=== PATIENT | male | born 1985 | race Caucasian/White ===

== ENCOUNTER → 2016-07-01 | Outpatient (CLI) | payer OTHER ==
[~2016-07-01] MED LIST: ASCO10003 PO; B-CO1CAP17 PO; CHOL20007 PO; DIPH30CA2 PO; FLAX1CAP11 PO; HYDR2.5C37 TOP; OMEG10007 PO; OXYC-57 PO; POTA99TA PO; VITA400C3 PO
== END | disposition home or self-care (01) ==
LOC: C.LAB 20:38
DX: Z02.83 Encounter for blood-alcohol and blood-drug test (principal)

== ENCOUNTER 2016-07-06 19:09 | Emergency (ER) | payer OTHER ==
[~2016-07-06] VITALS: Ht 180.3 cm; Wt 114.8 kg
[~2016-07-06 19:09] MED LIST changes: -ASCO10003 PO; -B-CO1CAP17 PO; -CHOL20007 PO; -DIPH30CA2 PO; -FLAX1CAP11 PO; -OMEG10007 PO; -POTA99TA PO; -VITA400C3 PO
[2016-07-06 19:11] VITALS: TEMP 36.8; Ht 180.3 cm; Wt 114.8 kg
[2016-07-06] MEDS ORDERED: OMEG10007 PO (19:32)
[2016-07-06] MEDS ORDERED: ASCO10003 PO (19:32)
[2016-07-06] MEDS ORDERED: B-CO1CAP17 PO (19:32)
[2016-07-06] MEDS ORDERED: FLAX1CAP11 PO (19:32)
[2016-07-06] MEDS ORDERED: VITA400C3 PO (19:32)
[2016-07-06] MEDS ORDERED: CHOL20007 PO (19:32)
[2016-07-06] MEDS ORDERED: POTA99TA PO (19:32)
[2016-07-06] MEDS ORDERED: CEFTRIAXONE SOD 350MG/ML 1 GM VIAL IM STA (20:04)
[2016-07-06] MEDS ORDERED: AZITHROMYCIN 250 MG TAB PO STA (20:04)
--- NOTE | 2016-07-06 20:47 | EMERGENCY ROOM VISIT NOTE ---
History First contact with patient: 19:16 Chief Complaint: THROAT PAIN/INJURY Stated Complaint: SORE THROAT History of Present Illness The patient is a 31 year old male who presents to the Emergency Room via private vehicle with complaints of "sore throat". The patient states that roughly 2 weeks ago he performed oral sex on a female and shortly after developed a sore throat. He is concerned that this may be a sexually transmitted disease and is requesting a full STD workup. He states the girl does not have any symptoms. He states that he stays hydrated there is no throat pain but if he becomes dehydrated or bruits through his mouth for a long period of time he develops a 5/10 pain in the throat. He denies any fevers, chills, trouble breathing, drooling, genital complaints, penile pain, penile discharge. He said he initially did have abdominal pain of which has now subsided. He states that he is concerned he may have an STD in his throat. Review of Systems A complete 6-point Review of Systems was discussed with the patient, with pertinent positives and negatives listed in the History of Present Illness. All remaining Review of Systems questions can be considered negative unless otherwise specified. Past Medical/Surgical History Medical Problems: (1) No known health problems (2) No known history of drug allergy Family History No pertinent family history Social History Smoking Status: Current Every Day Smoker Housing Status: lives with family Occupation Status: employed Current/Historical Medications Scheduled Ascorbic Acid (Vitamin C), 2,000 MG PO DAILY Cholecalciferol (Vitamin D3), 1 TAB PO DAILY Fish Oil (Lavina-3), 1 CAP PO DAILY Flaxseed (Linseed) (Flax Seed Oil), 2,000 MG PO DAILY Potassium (Potassium), 99 MG PO DAILY Vitamin B Cmplx/Vitc/Folic Ac (Nephrocaps), 1 CAP PO DAILY Vitamin E (Vitamin E 400 Iu), 400 INTER.UNIT PO DAILY Allergies Coded Allergies: No Known Allergies (Unverified , 05/27/16) Physical Exam Vital Signs Date Time Temp Pulse Resp B/P Pulse Ox O2 Delivery O2 Flow Rate FiO2 07/06/16 21:03 80 16 154/74 98 07/06/16 19:11 36.8 76 16 173/71 97 Room Air Physical Exam VITAL SIGNS - Vital signs and nursing notes were reviewed. Patient is hypertensive and he was instructed upon follow-up for this. GENERAL -31-year-old male appearing his stated age who is in no acute distress. Communicates well with provider and answers questions appropriately. SKIN - Without rashes. No petechial rashes. HEAD - NC/AT. EYES - Sclera anicteric. Palpebral conjunctiva pink and moist with no injection noted. EARS - No deformities of external structures noted on gross examination bilaterally. NOSE - Midline and without cyanosis. No epistaxis or purulent drainage noted. MOUTH/OROPHARYNX - Without perioral cyanosis. Buccal mucosa pink and moist and without leukoplakia. Tongue midline with equal elevation of palate bilaterally. Slight tonsillar enlargement bilaterally at 2+. No exudate. Minimal erythema. No vesicular lesions or drainage. NECK - Neck with FROM. Supple to palpation. No lymphadenopathy noted. No nuchal rigidity. No tenderness to palpation. No Kanu angina signs. LUNGS - Chest wall symmetric without accessory muscle use, intercostals retractions, or central cyanosis. Normal vesicular breath sounds CTA B/L. No wheezes, rales, or rhonchi appreciated. CARDIAC - RRR with S1/S2. No murmur, rubs, or gallops appreciated. Medical Decision & Procedures Medications Administered Medications (Trade) Dose Ordered Sig/Gonzalo Route Start Time Stop Time Status Last Admin Dose Admin Ceftriaxone Sodium (Rocephin Im) 250 mg NOW STAT IM 07/06/16 20:04 07/06/16 20:05 DC 07/06/16 20:04 250 MG Azithromycin (Zithromax Tab) 1,000 mg NOW STAT PO 07/06/16 20:04 07/06/16 20:05 DC 07/06/16 20:04 1,000 MG Medical Decision Patient was seen and evaluated as above. He did request a full workup for STDs however after thorough discussion it was decided that he would obtain the blood work portion of the testing at another facility that could provide easier follow -up. For here he did get a rapid strep which was negative. I also ordered gonorrhea and chlamydia culture of the throat which was sent to lab. He also wanted treatment for gonorrhea and chlamydia after discussion, therefore 250 mg of Rocephin was given IM and 1 g of azithromycin was given by mouth. He tolerated this well. He was provided with phone numbers to follow up regarding the blood work testing for HIV and such and indicated that he would go to an urgent care to have this done, but in the event that this is not work out the 3 phone numbers were for the local STD testing facilities most of which are free. At this time I suspect the patient likely has a viral pharyngitis with mild tonsillitis and do not suspect bacterial causes. He was instructed upon management. He was educated upon worrisome symptoms which to return. He was told to follow up regarding his high blood pressure and notes that it is normally not this high but states it is likely due to his recent habits over the past few days. I briefly discussed obtaining a family doctor within however the patient notes that he is busy with work. He was instructed upon worrisome symptoms are worse to return and discharged to home in good condition. In evaluation treatment this patient following differential diagnoses were entertained: Sexually transmitted infection, tonsillitis, pharyngitis, viral pharyngitis, mononucleosis among others. Impression Primary Impression: Sore throat Additional Impressions: Screening for STD (sexually transmitted disease) Possible exposure to STD Departure Information Dispostion Home / Self-Care Condition GOOD Referrals No Doctor, Assigned (PCP) Patient Instructions My [facility] Additional Instructions You were seen in the emergency department for your sore throat. The results of your rapid strep screen were found to be Negative.You will be contacted in 48- 72 hrs if the results of your culture are found to be positive and any change in antibiotics is necessary. We also cultured her throat for gonorrhea and chlamydia. These test results should be available in a few days. 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 You were treated with Rocephin and azithromycin here. For additional STD testing as we discussed please call [phone] ([facility] for free testing) or [facility] [phone] or [facility] [phone] For pain and fever control, you can use the following [id number] medicines (if >12 yo): - Regular strength (325mg/tab) Tylenol (acetaminophen) 2 tabs every 4-6 hours as needed. Do not exceed 12 tablets in a 24 hour period. Avoid taking more than 4 grams (4000 mg) of Tylenol per day. This includes any other sources of acetaminophen you may take on a regular basis. - Regular strength (200 mg/tab) Advil (ibuprofen) 1-2 tabs every 4-6 hours as needed. Do not exceed a dose of 3200 mg per day. - For best results, alternate dosing of Tylenol and Advil. In addition to your prescribed medications, you can also use the following home remedies: - Warm salt-water gargles 3 times per day can soothe your throat and help to fight infection. - Warm tea with honey can soothe your throat. Return to the emergency department if your symptoms persist or worsen over the next 2-3 days despite treatment course outlined above. Return to the emergency department if you develop the following symptoms of: inability to swallow solids , liquids, or drool; excessive wheezing or inability to catch your breath; or intractable fever or pain. Follow up with your primary care provider in 2-3 days from today's emergency department visit. Please return to the emergency department with any new/concerning symptoms. Problem Qualifiers
[2016-07-06 21:03] VITALS: BP 154/74; PULSE 80; O2SAT 98
--- NOTE | 2016-07-07 15:16 | Pharmacy Progress Note ---
ED Pharmacist Culture FollowUp Date of Service: Jul 07, 2016. Patient's Grp A Strep back-up culture resulted today. The culture is growing Grp A beta-hemolytic strep. I reviewed the results with Aram CANTU. Will start the patient on Amoxicillin 500mg PO BID x 10 days. I spoke with the patient over the phone and he asked I phone Rx to [facility] Alona Pagan ([phone]) - this has been done He did ask about the results of his throat culture as he is concerned that he contracted a STI in his throat. The gonorrhea and chlamydia cx of throat is currently negative however this is a preliminary result. He requested we contact him with the final results.
--- NOTE | 2016-07-08 12:51 | Pharmacy Progress Note ---
ED Pharmacist Culture FollowUp Date of Service: Jul 08, 2016. Called patient back today to report the results of his n gonorrhea throat cx. The results were negative in the final report.
== END 2016-07-06 21:05 | disposition home or self-care (01) ==
LOC: C.EDB 19:10 → C.EDD 21:05
DX: J02.9 Acute pharyngitis, unspecified (principal); Z11.3 Encounter for screening for infections with a predominantly sexual mode of transmission; Z20.2 Contact with and (suspected) exposure to infections with a predominantly sexual mode of transmission; F17.210 Nicotine dependence, cigarettes, uncomplicated; Z79.899 Other long term (current) drug therapy; R03.0 Elevated blood-pressure reading, without diagnosis of hypertension

== ENCOUNTER 2016-10-21 07:27 | Inpatient (IN) | payer BC, OTHER ==
[~2016-10-21] VITALS: Ht 180.3 cm; Wt 103.6 kg
[~2016-10-21 07:27] MED LIST changes: +ASCO10003 PO; +B-CO1CAP17 PO; +CHOL20007 PO; +FLAX1CAP11 PO; -HYDR2.5C37 TOP; +OMEG10007 PO; -OXYC-57 PO; +POTA99TA PO; +VITA400C3 PO
[2016-10-21] MEDS ORDERED: SODIUM CHLORIDE 0.9% 1000ML 1,000 ML IV STA ×3 (07:44→08:55)
[2016-10-21] MEDS ORDERED: PROMETHAZINE HCL INJ 6.25 MG in SODIUM CHLORIDE 0.9% 50ML 50 ML IV STA (07:44)
[2016-10-21] MEDS ORDERED: LORAZEPAM 2 MG/ML 1 ML VIAL IV STA ×2 (07:44→08:55)
--- NOTE | 2016-10-21 07:54 | EMERGENCY ROOM VISIT NOTE ---
History Report prepared by Karrie: João Barrera Under the Supervision of: Dr. Jae Blackman M.D. 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 The patient notes that he is worried that his heart is going to stop and that he is experiencing poor circulation. He is currently experiencing numbness of his face and lower extremities bilaterally. The patient notes that he had 3 grams of methamphetamine two days ago. This was his first time using meth but he does use cocaine. He has also been using alcohol since taking the meth. The patient smoked a cigarette 30 minutes prior to arrival which is when his current symptoms started. He has not been eating or keeping up with fluids since taking meth. He did vomit at one point after using the drug. 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 A total of 10 systems reviewed and were otherwise negative. Past Medical & Surgical Medical Problems: (1) ELEVATED [place], ALCOHOLIC , ILLICIT DRUG ABUSE (2) No known health problems (3) No known history of drug allergy Family History No pertinent family history Social History Smoking Status: Current Every Day Smoker Alcohol Use: occasionally Drug Use: cocaine Housing Status: lives with family Occupation Status: employed Current/Historical Medications Scheduled Ascorbic Acid (Vitamin C), 2,000 MG PO DAILY Cholecalciferol (Vitamin D3), 1 TAB PO DAILY Fish Oil (Cameron-3), 1 CAP PO DAILY Flaxseed (Linseed) (Flax Seed Oil), 2,000 MG PO DAILY Potassium (Potassium), 99 MG PO DAILY Vitamin B Cmplx/Vitc/Folic Ac (Nephrocaps), 1 CAP PO DAILY Vitamin E (Vitamin E 400 Iu), 400 INTER.UNIT PO DAILY Allergies Coded Allergies: No Known Allergies (Unverified , 10/21/16) Physical Exam Vital Signs Date Time Temp Pulse Resp B/P Pulse Ox O2 Delivery O2 Flow Rate FiO2 10/21/16 11:09 134/72 10/21/16 11:00 115 10/21/16 10:57 124 24 10/21/16 10:51 123/91 10/21/16 10:27 113 20 10/21/16 10:01 147/123 10/21/16 09:57 101 26 140/109 98 10/21/16 09:27 108 21 10/21/16 09:01 120/85 10/21/16 08:57 92 24 10/21/16 08:31 129/77 10/21/16 08:27 100 21 10/21/16 08:01 124/85 10/21/16 07:57 103 27 100 10/21/16 07:54 124/76 10/21/16 07:50 100 Nasal Cannula 2.0 10/21/16 07:48 100 Nasal Cannula 2.0 10/21/16 07:48 100 Nasal Cannula 2.0 10/21/16 07:42 110 10/21/16 07:39 131/93 10/21/16 07:33 36.5 118 20 97 Room Air Physical Exam GENERAL: Patient is anxious and hyperventilating. HEENT: No acute trauma, normocephalic atraumatic, mucous membranes are dry, no nasal congestion, no scleral icterus. NECK: No stridor, no adenopathy, no meningismus, trachea is midline. LUNGS: Clear to auscultation bilaterally, no wheeze, no rhonchi, breath sounds equal. HEART: Tachycardic with a regular rhythm and no murmurs. ABDOMEN: Soft, nontender, bowel sounds positive, no hernias, no peritonitis. EXTREMITIES: No cyanosis or edema, full range of motion of all the joints without pain or difficulty, no signs for acute trauma. NEUROLOGIC: Oriented x 3, no acute motor or sensory deficits, no focal weakness. SKIN: No rash, no jaundice, no diaphoresis. Medical Decision & Procedures ER Provider Diagnostic Interpretation: X-ray results as stated below per interpretation by me and the radiologist: CHEST ONE VIEW PORTABLE CLINICAL HISTORY: EVALUATE ALTERED MENTAL STATUS/WEAKNESS chest pain COMPARISON STUDY: No previous studies for comparison. FINDINGS: The bones soft tissues and hemidiaphragms are normal. The cardiomediastinal silhouette is normal. The lungs are clear. The pulmonary vasculature is normal. IMPRESSION: Negative chest. Electronically signed by: Rodrigo Maya M.D. 10/21/2016 8:29 AM Dictated Date/Time: 10/21/2016 8:29 AM Laboratory Results 10/21/16 07:46 Red Blood Count 6.00, Mean Corpuscular Volume 94.0, Mean Corpuscular Hemoglobin 32.3, Mean Corpuscular Hemoglobin Concent 34.4, Mean Platelet Volume 10.0, Neutrophils (%) (Auto) 68.2, Lymphocytes (%) (Auto) 18.6, Monocytes (%) (Auto) 12.1, Eosinophils (%) (Auto) 0.5, Basophils (%) (Auto) 0.3, Neutrophils # (Auto ) 6.79, Lymphocytes # (Auto) 1.85, Monocytes # (Auto) 1.21, Eosinophils # (Auto ) 0.05, Basophils # (Auto) 0.03 10/21/16 07:46 Test 10/21/16 07:46 10/21/16 08:10 White Blood Count 9.96 K/uL (4.8-10.8) Red Blood Count 6.00 M/uL (4.7-6.1) Hemoglobin 19.4 g/dL (14.0-18.0) Hematocrit 56.4 % (42-52) Mean Corpuscular Volume 94.0 fL (80-100) Mean Corpuscular Hemoglobin 32.3 pg (25-34) Mean Corpuscular Hemoglobin Concent 34.4 g/dl (32-36) Platelet Count 227 K/uL (130-400) Mean Platelet Volume 10.0 fL (7.4-10.4) Neutrophils (%) (Auto) 68.2 % Lymphocytes (%) (Auto) 18.6 % Monocytes (%) (Auto) 12.1 % Eosinophils (%) (Auto) 0.5 % Basophils (%) (Auto) 0.3 % Neutrophils # (Auto) 6.79 K/uL (1.4-6.5) Lymphocytes # (Auto) 1.85 K/uL (1.2-3.4) Monocytes # (Auto) 1.21 K/uL (0.11-0.59) Eosinophils # (Auto) 0.05 K/uL (0-0.5) Basophils # (Auto) 0.03 K/uL (0-0.2) RDW Standard Deviation 44.7 fL (36.4-46.3) RDW Coefficient of Variation 13.0 % (11.5-14.5) Immature Granulocyte % (Auto) 0.3 % Immature Granulocyte # (Auto) 0.03 K/uL (0.00-0.02) Anion Gap 6.0 mmol/L (3-11) Estimated GFR () 71.9 Estimated GFR (Non- 62.0 BUN/Creatinine Ratio 8.5 (10-20) Calcium Level 9.5 mg/dl (8.5-10.1) Magnesium Level 2.5 mg/dl (1.8-2.4) Total Bilirubin 1.6 mg/dl (0.2-1) Aspartate Amino Transf (AST/SGOT) 190 U/L (15-37) Alanine Aminotransferase (ALT/SGPT) 156 U/L (12-78) Alkaline Phosphatase 56 U/L (45-117) Total Creatine Kinase 3726 U/L (39-308) Troponin I 0.082 ng/ml (0-0.045) Total Protein 7.8 gm/dl (6.4-8.2) Albumin 4.0 gm/dl (3.4-5.0) Globulin 3.8 gm/dl (2.5-4.0) Albumin/Globulin Ratio 1.1 (0.9-2) Thyroid Stimulating Hormone (TSH) 4.160 uIu/ml (0.300-4.500) Hepatitis B Surface Antigen NEG (NEG) Hepatitis C Antibody NEG (NEG) Urine Color YELLOW Urine Appearance CLEAR (CLEAR) Urine pH 8.5 (4.5-7.5) Urine Specific [place] 1.003 (1.000-1.030) Urine Protein NEG (NEG) Urine Glucose (UA) NEG (NEG) Urine Ketones NEG (NEG) Urine Occult Blood NEG (NEG) Urine Nitrite NEG (NEG) Urine Bilirubin NEG (NEG) Urine Urobilinogen NEG (NEG) Urine Leukocyte Esterase NEG (NEG) Urine Opiates Screen NEG (NEG) Urine Methadone, Qualitative NEG (NEG) Urine Barbiturates NEG (NEG) Urine Phencyclidine (PCP) Level NEG (NEG) Ur Amphetamine/Methamphetamine POS (NEG) MDMA (Ecstasy) Screen NEG (NEG) Urine Benzodiazepines Screen NEG (NEG) Urine Cocaine Metabolite NEG (NEG) Urine Marijuana (THC) NEG (NEG) Laboratory results reviewed by me. Medications Administered Medications (Trade) Dose Ordered Sig/Gonzalo Route Start Time Stop Time Status Last Admin Dose Admin Sodium Chloride (Nss 1000ml) 1,000 ml @ 999 mls/hr Q1H1M STAT IV 10/21/16 07:44 10/21/16 08:44 DC 10/21/16 07:52 999 MLS/HR Lorazepam 1 mg 1 mg NOW STAT IV 10/21/16 07:44 10/21/16 07:47 DC 10/21/16 07:53 1 MG Promethazine HCl 6.25 mg/Sodium Chloride 50.25 ml @ 204 mls/hr NOW STAT IV 10/21/16 07:44 10/21/16 07:58 DC 10/21/16 08:11 204 MLS/HR Sodium Chloride (Nss 1000ml) 1,000 ml @ 250 mls/hr Q4H STAT IV 10/21/16 07:44 10/21/16 11:43 DC 10/21/16 08:12 250 MLS/HR Lorazepam 1 mg 1 mg NOW STAT IV 10/21/16 08:55 10/21/16 08:56 DC 10/21/16 09:04 1 MG Sodium Chloride 1,000 ml @ 999 mls/hr Q1H1M STAT IV 10/21/16 08:55 10/21/16 09:55 DC 10/21/16 08:30 999 MLS/HR Sodium Chloride (Nss 1000ml) 1,000 ml @ 200 mls/hr Q5H IV 10/21/16 11:07 11/20/16 11:06 10/21/16 14:10 200 MLS/HR ECG Indication: tachycardia Rate (beats per minute): 107 Rhythm: sinus tachycardia Findings: no acute ischemic change, no ectopy ED Course 0742: The patient was evaluated in room B3b. A complete history and physical exam was performed. 0744: NSS 1000 ml @ 250 mls/hr, Promethazine HCl 6.25 mg / NSS 50.25 ml @ 204 mls/hr, Ativan 1 mg IV, NSS 1000 ml @ 999 mls/hr. 0854: The patient is feeling somewhat better but requested more Ativan to calm his nerves. 0855: NSS 1000 ml @ 999 mls/hr, Ativan 1 mg IV. 0935: The patient is willing to stay in the hospital. 0944: Discussed the case with Dr. Michelle DE DIOS Hospitalist. The patient will be evaluated. Medical Decision Differential diagnosis includes hyperventilation, dehydration, drug or alcohol abuse, electrolyte imbalance, dysrhythmia, anemia, infection. There is no leukocytosis. The hemoglobin is high consistent with dehydration. Renal panel testing does show dehydration. A mild hepatitis was noted by laboratory testing. EKG shows sinus tachycardia, no acute ischemia. Cardiac enzyme testing is elevated consistent with some cardiac strain. Total CK is elevated consistent with a mild rhabdomyolysis. Chest x-ray does not show pneumonia or pneumothorax. Urinalysis does not show infection. The patient appears to be in a euthyroid state. Urine tox does show methamphetamine. The patient received IV Ativan, IV Phenergan and IV saline. The patient feels improved since the above treatment. Given his laboratory abnormalities, admission/observation was felt warranted. I spoke to the patient and case management. The on-call hospitalist was consulted. Consults Time Called: 934 Consulting Physician: Dr. Michelle DE DIOS Hospitalist Returned Call: [phone] The patient will be evaluated. Impression Primary Impression: Tachycardia Additional Impressions: Methamphetamine use Elevated troponin Dehydration Rhabdomyolysis Scribe Attestation The scribe's documentation has been prepared under my direction and personally reviewed by me in its entirety. I confirm that the note above accurately reflects all work, treatment, procedures, and medical decision making performed by me. Departure Information Dispostion Being Evaluated By Hospitalist Referrals No Doctor, Assigned (PCP) Patient Instructions My [facility] Problem Qualifiers
[2016-10-21 08:02] LABS: BASO % 0.3 %; BASO ABS # 0.03 K/uL (0-0.2); COMPLETE YES; EOS % 0.5 %; HEMATOCRIT 56.4 % (42-52); IG% 0.3 %; LYMPH % 18.6 %; LYMPH ABS # 1.85 K/uL (1.2-3.4); MEAN CORPUSCULAR HEMOGLOBIN 32.3 pg (25-34); MEAN CORPUSCULAR HGB CONC 34.4 g/dl (32-36); MONO % 12.1 %; NEUT % 68.2 %; PLATELET COUNT 227 K/uL (130-400); WHITE BLOOD COUNT 9.96 K/uL (4.8-10.8)
[2016-10-21 08:24] LABS: URINE APPEARANCE CLEAR (CLEAR); URINE BILIRUBIN NEG (NEG); URINE COLOR YELLOW; URINE NITRITE NEG (NEG); URINE PH 8.5 (4.5-7.5); URINE SPECIFIC GRAVITY 1.003 (1.000-1.030); UROBILINOGEN NEG (NEG); ZZUR CULT IF INDIC CLEAN CATCH NO
[2016-10-21 08:25] LABS: MANUAL MICROSCOPIC REQUIRED? NO; REVIEW REQ? NO
--- NOTE | 2016-10-21 08:31 | DIAGNOSTIC IMAGING REPORT ---
CHEST ONE VIEW PORTABLE CLINICAL HISTORY: EVALUATE ALTERED MENTAL STATUS/WEAKNESS chest pain COMPARISON STUDY: No previous studies for comparison. FINDINGS: The bones soft tissues and hemidiaphragms are normal. The cardiomediastinal silhouette is normal. The lungs are clear. The pulmonary vasculature is normal. IMPRESSION: Negative chest. Electronically signed by: Rodrigo Maay M.D. 10/21/2016 8:29 AM Dictated Date/Time: 10/21/2016 8:29 AM
[2016-10-21 08:57] LABS: BENZODIAZEPINE, URINE NEG (NEG); COCAINE,URINE NEG (NEG); PHENCYCLIDINE, URINE NEG (NEG)
[2016-10-21 09:09] LABS: ALB/GLOB RATIO 1.1 (0.9-2); ALKALINE PHOSPHATASE 56 U/L (45-117); ALT/SGPT 156 U/L (12-78); AST/SGOT 190 U/L (15-37); BLOOD UREA NITROGEN 13 mg/dl (7-18); BUN/CREATININE RATIO 8.5 (10-20); CALCIUM 9.5 mg/dl (8.5-10.1); CARBON DIOXIDE 30 mmol/L (21-32); CHLORIDE 100 mmol/L (98-107); GLUCOSE 92 mg/dl (70-99); MAGNESIUM 2.5 mg/dl (1.8-2.4); POTASSIUM 4.1 mmol/L (3.5-5.1); SODIUM 136 mmol/L (136-145)
[2016-10-21] MEDS ORDERED: SODIUM CHLORIDE 0.9% 1000ML 1,000 ML IV SCH (11:07)
[2016-10-21] MEDS ORDERED: ONDANSETRON INJ 2 MG/ML 2 ML VIAL IV PRN (11:15)
[2016-10-21] MEDS ORDERED: POLYETHYLENE (MIRALAX) 17 GM PACK PO PRN (11:15)
[2016-10-21] MEDS ORDERED: ALUMINUM/MAGNESIUM/SIMETH (MAALOX MAX) 30 ML UDC PO PRN (11:15)
[2016-10-21] MEDS ORDERED: ZOLPIDEM TARTRATE 5 MG TAB PO PRN (11:15)
[2016-10-21] MEDS ORDERED: MAGNESIUM HYDROXIDE SUSP 30 ML UDC PO PRN (11:15)
[2016-10-21] MEDS ORDERED: LORAZEPAM 1 MG TAB PO PRN (11:30)
--- NOTE | 2016-10-21 11:35 | Medical Student: [facility] ---
Med Student History & Physical Date & Time of Service: October 21, 2016 at 11:07 Chief Complaint: Heart Is Rapid Primary Care Physician: No Doctor, Assigned History of Present Illness Source: patient Sam Mijares is a 31 yo Italian male who presented to the ED this morning after experiencing his "heart stopping". He states that he used 3g methamphetamine two days ago for the first time, and did not hydrate or eat much since then. He has continued to consume alcohol during this two day binge. Upon arrival to the ED, he was very anxious and complained of a racing heart. He also experienced numbness in his legs bilaterally and tingling in his face. He is worried about a reddish yellow discoloration of his finger tips bilaterally. He also complains of bilateral flank pain that has improved with hydration. He has a history of drug abuse 9 years ago resulting in incarceration. He has been clean for the last 7 years, and recently began using cocaine and alcohol 9 months ago. 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 He injects testosterone monday and of each week, most recently yesterday. He states that normally makes him tachycardic. He denies diarrhea, constipation, decreased urinary output, chest pain, shortness of breath or loss of consciousness. Past Medical/Surgical History Medical Problems: (1) Dehydration Status: Acute (2) Elevated troponin Status: Acute (3) External hemorrhoid Status: Acute (4) Methamphetamine use Status: Acute (5) Rhabdomyolysis Status: Acute (6) Sore throat Status: Acute (7) Tachycardia Status: Acute Social History Smoking Status: Current Every Day Smoker Alcohol Use: heavy (12 pack per day over last 2 weeks) Drug Use: cocaine, other (methamphetamine 2 days ago) Marital Status: single Housing status: lives alone Occupational Status: employed Allergies Coded Allergies: No Known Allergies (Unverified , 10/21/16) Medications Ascorbic Acid (Vitamin C), 2,000 MG PO DAILY Cholecalciferol (Vitamin D3), 1 TAB PO DAILY Fish Oil ([place]-3), 1 CAP PO DAILY Flaxseed (Linseed) (Flax Seed Oil), 2,000 MG PO DAILY Potassium (Potassium), 99 MG PO DAILY Vitamin B Cmplx/Vitc/Folic Ac (Nephrocaps), 1 CAP PO DAILY Vitamin E (Vitamin E 400 Iu), 400 INTER.UNIT PO DAILY Review of Systems Constitutional: + chills, + fatigue, + weakness, No fever, No sweats, No weight loss Eyes: No problem reported ENT: No problem reported Respiratory: No problem reported Cardiovascular: + PND, + palpitations, + problem reported ("heart stopping" this AM) Abdomen: No problem reported Musculoskeletal: + muscle pain (blank pain bilaterally) Genitourinary - Male: No problem reported Neurologic: + memory loss, + numbness/tingling (feet bilaterally, face) Psychiatric: + anxiety, + substance abuse (meth, coccaine, etoh) Endocrine: No problem reported Integumentary: + color change (fingertips yellow/red), + rash Physical Exam Vital Signs (24 Hours) Date Time Temp Pulse Resp B/P Pulse Ox O2 Delivery O2 Flow Rate FiO2 10/21/16 11:00 115 10/21/16 07:50 100 Nasal Cannula 2.0 10/21/16 07:48 100 Nasal Cannula 2.0 10/21/16 07:48 100 Nasal Cannula 2.0 10/21/16 07:42 110 10/21/16 07:33 36.5 118 20 97 Room Air General Appearance: WD/WN, + mild distress, + pertinent finding (anxious) Head: normocephalic, atraumatic Eyes: + pertinent finding (dilated pupils) ENT: hearing grossly normal, pharynx normal, + pertinent finding (scabbing on lips below nostrils b/l) Neck: supple, no adenopathy, thyroid normal, no JVD, no carotid bruits, trachea midline Respiratory/Chest: chest non-tender, lungs clear, normal breath sounds, no respiratory distress, + pertinent finding (tachypnea) Cardiovascular: no edema, no gallop, no JVD, no murmur, normal peripheral pulses, + tachycardia Abdomen/GI: normal bowel sounds, non tender, soft, no organomegaly, no pulsatile mass Back: no CVA tenderness Extremities/Musculoskelatal: no calf tenderness, no pedal edema, + pertinent finding (yellow/red rash on fingertips b/l) Neurologic/Psych: resident intern II-XII nml as tested, no motor/sensory deficits, alert, oriented x 3, + pertinent finding (anxious) Skin: + pertinent finding (yellow/red fingertips, red rash over chest and face) Diagnostics Laboratory Results Results Past 24 Hours Test 10/21/16 07:46 10/21/16 08:10 Range/Units White Blood Count 9.96 4.8-10.8 K/uL Red Blood Count 6.00 4.7-6.1 M/uL Hemoglobin 19.4 14.0-18.0 g/dL Hematocrit 56.4 42-52 % Mean Corpuscular Volume 94.0 80-100 fL Mean Corpuscular Hemoglobin 32.3 25-34 pg Mean Corpuscular Hemoglobin Concent 34.4 32-36 g/dl Platelet Count 227 130-400 K/uL Mean Platelet Volume 10.0 7.4-10.4 fL Neutrophils (%) (Auto) 68.2 % Lymphocytes (%) (Auto) 18.6 % Monocytes (%) (Auto) 12.1 % Eosinophils (%) (Auto) 0.5 % Basophils (%) (Auto) 0.3 % Neutrophils # (Auto) 6.79 1.4-6.5 K/uL Lymphocytes # (Auto) 1.85 1.2-3.4 K/uL Monocytes # (Auto) 1.21 0.11-0.59 K/uL Eosinophils # (Auto) 0.05 0-0.5 K/uL Basophils # (Auto) 0.03 0-0.2 K/uL RDW Standard Deviation 44.7 36.4-46.3 fL RDW Coefficient of Variation 13.0 11.5-14.5 % Immature Granulocyte % (Auto) 0.3 % Immature Granulocyte # (Auto) 0.03 0.00-0.02 K/uL Sodium Level 136 136-145 mmol/L Potassium Level 4.1 3.5-5.1 mmol/L Chloride Level 100 98-107 mmol/L Carbon Dioxide Level 30 21-32 mmol/L Anion Gap 6.0 3-11 mmol/L Blood Urea Nitrogen 13 7-18 mg/dl Creatinine 1.50 0.60-1.40 mg/dl Estimated GFR () 71.9 Estimated GFR (Non- 62.0 BUN/Creatinine Ratio 8.5 10-20 Random Glucose 92 70-99 mg/dl Calcium Level 9.5 8.5-10.1 mg/dl Magnesium Level 2.5 1.8-2.4 mg/dl Total Bilirubin 1.6 0.2-1 mg/dl Aspartate Amino Transf (AST/SGOT) 190 15-37 U/L Alanine Aminotransferase (ALT/SGPT) 156 12-78 U/L Alkaline Phosphatase 56 45-117 U/L Total Creatine Kinase 3726 39-308 U/L Troponin I 0.082 0-0.045 ng/ml Total Protein 7.8 6.4-8.2 gm/dl Albumin 4.0 3.4-5.0 gm/dl Globulin 3.8 2.5-4.0 gm/dl Albumin/Globulin Ratio 1.1 0.9-2 Thyroid Stimulating Hormone (TSH) 4.160 0.300-4.500 uIu/ml Urine Color YELLOW Urine Appearance CLEAR CLEAR Urine pH 8.5 4.5-7.5 Urine Specific [place] 1.003 1.000-1.030 Urine Protein NEG NEG Urine Glucose (UA) NEG NEG Urine Ketones NEG NEG Urine Occult Blood NEG NEG Urine Nitrite NEG NEG Urine Bilirubin NEG NEG Urine Urobilinogen NEG NEG Urine Leukocyte Esterase NEG NEG Urine Opiates Screen NEG NEG Urine Methadone, Qualitative NEG NEG Urine Barbiturates NEG NEG Urine Phencyclidine (PCP) Level NEG NEG Ur Amphetamine/Methamphetamine POS NEG MDMA (Ecstasy) Screen NEG NEG Urine Benzodiazepines Screen NEG NEG Urine Cocaine Metabolite NEG NEG Urine Marijuana (THC) NEG NEG CXR normal EKG Sinus tachycardia, Right axis deviation Impression Assessment and Plan Sam is a 31 yo male with acute kidney injury and rhabdo following a binge of methamphetamine and alcohol beginning two days ago. He is currently anxious and experiencing a racing heart beat. Individual assessment and plan are as follows: 1. Acute kidney injury: Likely due to dehydration following methamphetamine use two days ago. Accompanied by rhabdo. Will push IV nl saline. Oral hydration encouraged. Will recheck creatinine, creatinine kinase, BUN tomorrow. 2. Tachycardia: Could be due to dehydration, drug withdraw, etoh withdraw, or testosterone injection yesterday. Troponin elevated at .8. Will consult cardiology to rule out VT and repeat troponin x3. 3. Drug abuse: Alcohol abuse disorder, with 4 drinks yesterday. Not currently intoxicated. Will discuss rehab with patient once calm. Psych consult. 4. Dehydration: Secondary to drug use. Continue IV fluids with normal saline or lactated ringers. 5. Elevated LFTs: Could be due to drug use, rhabdo or alcohol abuse: Will check hepatitis serologies. Avoid Tylenol or other hepatotoxic agents. Will recheck AST and ALT tomorrow. 6. Anxiety: Continue ativan PRN until calm. 7. Disposition: Admit to floor. Normal meals. DVT prophylaxis not indicated. Ambulation encouraged. Due to history of drug abuse and lack of pain, avoid narcotics. Level of Care Med/Surg Resuscitation Status FULL RESUSCITATION DVT Prophylaxis patient low risk - not indicated
--- NOTE | 2016-10-21 11:59 | HISTORY & PHYSICAL EXAMINATION ---
DATE OF ADMISSION: 10/21/2016 This is a level 3 inpatient admission, 35 minutes. CHIEF COMPLAINT: Persistent tachycardia. HISTORY OF PRESENT ILLNESS: The patient is a 31-year-old white male with a significant past medical history of IV steroid use several years ago, coming to the hospital Emergency Department because of the above chief complaint. He reported has persistent tachycardia [id number] minutes prior to the admission. He was worried about heart going to stop. Reports some face numbness and lower extremity numbness as well. He reported using testosterone injection for muscle strength BODY building and sometimes uses marijuana as well. He is using methamphetamine 2 days ago, which was his first time using this illicit drug. He continued drinking alcohol. Has been using alcohol since using methamphetamine. He smokes cigarettes as well. Reports has not been eating and drinking associated with muscle ache. He did have vomit once after using the methamphetamine. In the Emergency Room, he was found hyper associated with acute kidney failure, elevated troponin and has some abnormalities of liver function test. His total CK was 3700. Therefore, I was asked to admit the patient. When I interviewed with the patient, he is hyperactive, talking, some anxious, he is concerned about his heart conditions. Confirming the above information. REVIEW OF SYSTEMS: Denied fever or chill. Denied cough, sputum, shortness of breath. Denied chest pain, currently has no palpitations. He was having some nauseation and vomiting x1, currently has no nausea or vomiting, no abdominal pain, diarrhea or constipation. Denied black stools or bright red blood per rectum. Denied dysuria, urgency and frequencies. Denied facial droop, slurry speeches or local weakness. PAST MEDICAL HISTORY: Like I mentioned in the above, which include a remote history of IV drug abuse. SOCIAL HISTORY: Current smoking, he was using cocaine, marijuana and now methamphetamine. The patient lives with family and is drinking alcohol as well. FAMILY HISTORY: Noncontributory. CURRENT MEDICATIONS: Include vitamin C 2000 mg p.o. daily, vitamin D3 one tab p.o. daily, linseed 2 grams p.o. daily, potassium 99 mg p.o. daily, vitamin B complex 1 tab p.o. daily, vitamin E 400 international units p.o. daily. ALLERGIES: No known drug allergies. PHYSICAL EXAMINATION: VITAL SIGNS: Temperature is 36.5, pulse 118, respiration rate 20, blood pressure was around 140/80. Pulse ox was 97% in room air. GENERAL: The patient is a white male, looks hyper, anxious and little hyperventilating, active talking. HEENT: Pupils equal, round responds to light. Bilateral pupils are obvious about 6 mm. There was no icterus. No jaundice NECK: Supple. Thyroid no enlargement. Trachea midline. LUNGS: Decreased breathing sounds. There were no wheezing, rhonchi or crackles. HEART: Regular rhythm. S1, S2. He has no murmur, no gallop, no rubs. ABDOMEN: Soft, nontender. Bowel sound was positive. GENITOURINARY AND RECTAL: Deferred. EXTREMITIES: Bilateral lower extremities, no clubbing, no cyanosis, but the patient is very muscular and a lot of skin hair. LABORATORY STUDIES: WBC 9.9, hemoglobin 19, platelets 227. Sodium 136, potassium 4.1, BUN 13, creatinine 1.5, blood glucose 9. UA was not remarkable. Urine drug screen was positive for methamphetamine IMAGING DATA: In the Emergency Room, chest x-ray, there was no acute disease. EKG - there was normal sinus rhythm. Mild tachycardia at 102. There were no ST-T phase changes. ASSESSMENT AND PLAN: A 31-year-old white male with the problems below: 1. Illicit drug abuse with methamphetamine and history of marijuana , history of intravenous drug abuse by cocaine, was using cocaine many years ago. 2. Mild rhabdomyolysis with elevated total CK 3. Acute kidney failure with elevated creatinine. 4. Tachycardia, likely because of dehydration. 5. Hyper-hemoglobin levels at 19, which could from dehydration, or testosterone injection 6. Alcohol abuse disorder. 7. Anxiety. Because of the above patient's medical conditions, I will keep him in the Tele monitor, will have IV fluid continually, follow up liver function, renal function. Follow up cardiac enzymes, troponin x2 sets more. Follow CPK levels. We have cardiology consultation because of elevated troponin. Have psychiatry consultation because of history of cocaine abuse and currently is illicit drug abuse. Because of heavy alcohol intake, will have CIWA protocol, continue banana bag. Ativan as needed. For the abnormal liver function test with elevated liver enzymes could be from alcohol damages, hepatitis C, or from the dehydration, will check hepatitis panel and then followup. Avoid Tylenol. GI and DVT prophylaxis is covered. The patient is full code. MTDD
[2016-10-21 12:34] VITALS: BP 102/86; PULSE 109; TEMP 36.4; O2SAT 96
[2016-10-21 13:28] VITALS: BP 102/86; PULSE 109; TEMP 36.4; O2SAT 96; Ht 180.3 cm; Wt 103.6 kg
[2016-10-21 14:36] LABS: PARTIAL THROMBOPLASTIN RATIO 0.9; PROTHROMBIN TIME (PATIENT) 10.4 SECONDS (9.0-12.0)
[2016-10-21] MEDS ORDERED: NURSING VERBAL MED ORDER ONE (15:30)
[2016-10-21 15:46] VITALS: BP 147/98; PULSE 98; TEMP 36.5; O2SAT 96
[2016-10-21] MEDS ORDERED: NICOTINE 21 MG/24 HR TDSY TD SCH (16:00)
--- NOTE | 2016-10-21 18:21 | Cardiology Consultation ---
Cardiology Consultation Date of Consultation: October 21, 2016. Requesting Physician: Dr. Martinez Reason for Consultation: Elevated troponin, Pt evaluation today including: conversation w/ patient, physical exam, lab review, review of studies, review of inpatient medication list History of Present Illness This is a 31-year-old [place] gentleman (although he speaks Congolese quite well) who presented to the emergency room with complaints of a rapid heart rate. He also was describing his "heart stopping" although he did not experience syncope or presyncope. He was also complaining of numbness in his face and lower extremities. He evidently has a history of multiple drug abuse, as well as alcohol. 4 end number of days prior to admission (he thinks 4 or 5) he had not been eating or drinking anything except perhaps a little beer. He presented with a number of metabolic abnormalities including a creatinine of 1.5, elevated liver function tests and an elevated total CK to 3700 and an elevated troponin I to 0.082. 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 He is a little bit hard to talk to, perhaps in part the language barrier but mostly because he rambles about his history and doesn't have very many specifics. It sounds as though he had an extensive evaluation at [facility], and apparently they either did not find anything wrong or were not able to tell him what they did find. I can't tell exactly what his symptoms were that prompted that evaluation except it may be "skipped beats" or his "heart stopping". He does not however have presyncope or syncope. He notes that his heart rate is elevated which he feels is due to using testosterone. Past Medical/Surgical History (1) Hemorrhoid Family History No pertinent family history Social History Smoking Status: Current Every Day Smoker History of Alcohol Use: Yes Review of Systems Constitutional: No fever, No weakness, No weight loss Respiratory: No cough, No dyspnea on exertion, No shortness of breath, No wheezing Cardiac: + palpitations, + see HPI, No PND, No chest pain, No edema, No orthopnea Abdomen: No GI bleeding, No diarrhea, No nausea, No pain, No vomiting Male : No nocturia more than once/night, No sexual dysfunction, No slowing stream, No urinary frequency Neurologic: No balance problems, No numbness/tingling, No paralysis, No weakness Heme: No abnormal bleeding/bruising, No clotting problems Endo: No fatigue Skin: No problem reported All Other Systems: Reviewed and Negative Allergies Coded Allergies: No Known Allergies (Unverified , 10/21/16) Medications Current Inpatient Medications Medications (Trade) Dose Ordered Sig/Gonzalo Route Start Time Stop Time Status Last Admin Dose Admin Heparin Sodium (Porcine) 5000 unit 5,000 unit Q12 SQ 10/21/16 21:00 11/20/16 20:59 Sodium Chloride (Nss 1000ml) 1,000 ml @ 200 mls/hr Q5H IV 10/21/16 11:07 11/20/16 11:06 10/21/16 14:10 200 MLS/HR Al Hydrox/Mg Hydrox/Simethicone (Maalox Max Susp) 15 ml Q4H PRN PO 10/21/16 11:15 11/20/16 11:14 Magnesium Hydroxide (Milk Of Magnesia Susp) 30 ml Q12H PRN PO 10/21/16 11:15 11/20/16 11:14 Zolpidem Tartrate (Ambien Tab) 5 mg HSZ PRN PO 10/21/16 11:15 11/20/16 11:14 Ondansetron HCl (Zofran Inj) 4 mg Q6H PRN IV 10/21/16 11:15 11/20/16 11:14 Polyethylene 17 gm 17 gm DAILY PRN PO 10/21/16 11:15 11/20/16 11:14 Multivitamins 10 ml/Thiamine HCl 100 mg/Folic Acid 1 mg/Sodium Chloride 1,011.2 ml @ 150 mls/ hr DAILY@0800 IV 10/22/16 08:00 11/21/16 07:59 Pantoprazole Sodium/Syringe (Protonix Inj/ Syringe) 10 ml @ 5 mls/min DAILY@11 IV 10/22/16 11:00 11/21/16 10:59 Nicotine (Nicoderm Cq 21MG Patch) 1 patch QAM TD 10/21/16 16:00 11/20/16 15:59 Miscellaneous (Remove Nicoderm Patch) 1 ea HS N/A 10/21/16 21:00 11/20/16 20:59 Physical Exam Vital Signs Past 12 Hours Date Time Temp Pulse Resp B/P Pulse Ox O2 Delivery O2 Flow Rate FiO2 10/21/16 16:00 Room Air 10/21/16 15:46 36.5 98 20 147/98 96 Nasal Cannula 10/21/16 13:28 36.4 109 20 102/86 96 Room Air 10/21/16 12:34 36.4 109 20 102/86 96 Room Air 10/21/16 12:20 121 148/89 97 10/21/16 11:09 134/72 10/21/16 11:00 115 10/21/16 10:57 124 24 10/21/16 10:51 123/91 10/21/16 10:27 113 20 10/21/16 10:01 147/123 10/21/16 09:57 101 26 140/109 98 10/21/16 09:27 108 21 10/21/16 09:01 120/85 10/21/16 08:57 92 24 10/21/16 08:31 129/77 10/21/16 08:27 100 21 10/21/16 08:01 124/85 10/21/16 07:57 103 27 100 10/21/16 07:54 124/76 10/21/16 07:50 100 Nasal Cannula 2.0 10/21/16 07:48 100 Nasal Cannula 2.0 10/21/16 07:48 100 Nasal Cannula 2.0 10/21/16 07:42 110 10/21/16 07:39 131/93 10/21/16 07:33 36.5 118 20 97 Room Air Constitutional: General Apperance: heathly-appearing Level of Distress: NAD Psychiatric: Mental Status: active & alert Head: normocephalic Eyes: EOM: EOMI ENMT: normal ENT inspection, hearing grossly normal Neck: supple, no masses Lungs: Respiratory effort: no dyspnea, good air movement Auscultation: breath sounds normal, no wheezing Cardiovascular: Heart Auscultation: RRR, no murmurs, no rubs, no gallops Peripheral Pulses: Bruits: none appreciated Abdomen: Bowel Sounds: normal Inspection & Palpation: soft, no tenderness, guarding & rebound, no masses Musculoskeletal: normal strength (5/5 throughout) Extremities: no edema Neurologic: Cranial Nerves: grossly intact Sensation: grossly intact Data Laboratory Results: Last 24 Hours Test 10/21/16 07:46 10/21/16 08:10 10/21/16 14:03 10/21/16 17:05 White Blood Count 9.96 K/uL Red Blood Count 6.00 M/uL Hemoglobin 19.4 g/dL Hematocrit 56.4 % Mean Corpuscular Volume 94.0 fL Mean Corpuscular Hemoglobin 32.3 pg Mean Corpuscular Hemoglobin Concent 34.4 g/dl Platelet Count 227 K/uL Mean Platelet Volume 10.0 fL Neutrophils (%) (Auto) 68.2 % Lymphocytes (%) (Auto) 18.6 % Monocytes (%) (Auto) 12.1 % Eosinophils (%) (Auto) 0.5 % Basophils (%) (Auto) 0.3 % Neutrophils # (Auto) 6.79 K/uL Lymphocytes # (Auto) 1.85 K/uL Monocytes # (Auto) 1.21 K/uL Eosinophils # (Auto) 0.05 K/uL Basophils # (Auto) 0.03 K/uL RDW Standard Deviation 44.7 fL RDW Coefficient of Variation 13.0 % Immature Granulocyte % (Auto) 0.3 % Immature Granulocyte # (Auto) 0.03 K/uL Sodium Level 136 mmol/L Potassium Level 4.1 mmol/L Chloride Level 100 mmol/L Carbon Dioxide Level 30 mmol/L Anion Gap 6.0 mmol/L Blood Urea Nitrogen 13 mg/dl Creatinine 1.50 mg/dl Estimated GFR () 71.9 Estimated GFR (Non- 62.0 BUN/Creatinine Ratio 8.5 Random Glucose 92 mg/dl Calcium Level 9.5 mg/dl Magnesium Level 2.5 mg/dl Total Bilirubin 1.6 mg/dl Aspartate Amino Transf (AST/SGOT) 190 U/L Alanine Aminotransferase (ALT/SGPT) 156 U/L Alkaline Phosphatase 56 U/L Total Creatine Kinase 3726 U/L Troponin I 0.082 ng/ml Total Protein 7.8 gm/dl Albumin 4.0 gm/dl Globulin 3.8 gm/dl Albumin/Globulin Ratio 1.1 Thyroid Stimulating Hormone (TSH) 4.160 uIu/ml Hepatitis B Surface Antigen NEG Hepatitis C Antibody NEG Urine Color YELLOW Urine Appearance CLEAR Urine pH 8.5 Urine Specific [place] 1.003 Urine Protein NEG Urine Glucose (UA) NEG Urine Ketones NEG Urine Occult Blood NEG Urine Nitrite NEG Urine Bilirubin NEG Urine Urobilinogen NEG Urine Leukocyte Esterase NEG Urine Opiates Screen NEG Urine Methadone, Qualitative NEG Urine Barbiturates NEG Urine Phencyclidine (PCP) Level NEG Ur Amphetamine/Methamphetamine POS MDMA (Ecstasy) Screen NEG Urine Benzodiazepines Screen NEG Urine Cocaine Metabolite NEG Urine Marijuana (THC) NEG Prothrombin Time 10.4 SECONDS Prothromb Time International Ratio 1.0 Activated Partial Thromboplast Time 24.3 SECONDS Partial Thromboplastin Ratio 0.9 Test 10/21/16 17:07 Creatine Kinase MB Ratio Imaging: An echocardiogram is pending EKG: Sinus tachycardia (heart rate 107) with a rightward axis on admission Telemetry reviewed: Sinus rhythm and sinus tachycardia, heart rate often around 100 or little higher. Assessment & Plan #1. Tachycardia: In general he seems very anxious and hyperactive, pacing the hallways and his room, etc. I think his heart rate is probably appropriate for his mental or physical state currently. I would just continue to monitor her without using pharmacologic therapy. He has not seemed aware of the heart rate. #2. History of "skipped beats" and "heart stopping": I suspect these are premature beats but I don't know, he doesn't seem to have symptoms of more serious arrhythmias such as presyncope or syncope. I would continue to follow on telemetry. #3. Elevated troponin: This is minimally elevated and probably goes along with his elevated CPK and liver function abnormalities, possibly due to dehydration and drug use. I would trend the troponin and get serial electrocardiograms but I would be reluctant to perform stress testing or invasive evaluation and less clear abnormalities develop. I think an echocardiogram is reasonable and he is scheduled for that. Thank you for allowing me to participate in his care.
[2016-10-21 19:02] LABS: CKMB/CK RATIO 0.6 (0-3.0)
--- NOTE | 2016-10-21 19:24 | ECHOCARDIOGRAM REPORT ---
*NOTICE TO RECEIVING CONSTITUTION PARTY AGENCY This information is strictly Confidential and protected under [place] law. [place] law prohibits you from making any further disclosure of this information unless further disclosure is expressly permitted by the written consent of the person to whom it pertains or is authorized by law. A general authorization for the release of medical or other information is not sufficient for this purpose. Hospital accepts no responsibility if the information is made available to any other person, INCLUDING THE PATIENT. Interpretation Summary * Name: SKYE RIGGS Study Date: 10/21/2016 02:37 PM BP: 148/89 mmHg * Patient Location: .2E\S\E209\S\1 HR: 99 * : 1985 (M/d/yyyy) Gender: Male Height: 71 in * Age: 31 yrs Ethnicity: CA Weight: 228 lb * Ordering Physician: Shahram Martinez * Referring Physician: Self, Referred * Performed By: Agata Rogers RCS * * Reason For Study: ELEVATED TROPONIN / ALCOHOLIC / ILLICIT DRUG ABUSE * BSA: 2.2 m2 * Mild left ventricular systolic dysfunction. * Normal right ventricular systolic function. * Moderate concentric left ventricular hypertrophy. * Normal chamber dimensions. * Trace pulmonic and tricuspid regurgitation. Procedure Details * A complete two-dimensional transthoracic echocardiogram was performed (2D, M-mode, Doppler and color flow Doppler). Left Ventricle * The left ventricle is normal in size. * There is moderate concentric left ventricular hypertrophy. * Ejection Fraction = 45-50%. * Left ventricular systolic function is mildly reduced. Right Ventricle * The right ventricle is normal in size and function. Atria * The left atrial size is normal. * Right atrial size is normal. * No ASD detected; PFO is not assessed. Mitral Valve * The mitral valve is normal. * There is no mitral valve stenosis. * There is no mitral regurgitation noted. Tricuspid Valve * The tricuspid valve is normal. * There is no tricuspid stenosis. * There is trace tricuspid regurgitation. Aortic Valve * The aortic valve is trileaflet. * The aortic valve opens well. * Aortic stenosis is absent. * No aortic regurgitation is present. Pulmonic Valve * The pulmonic valve is not well visualized. * The pulmonary valve is inadequately visualized, but the Doppler data is adequate for interpretation. * There is no pulmonic valvular stenosis. * Trace pulmonic valvular regurgitation. Great Vessels * The aortic root is normal size. Pericardium/Pleural * There is no pericardial effusion. Great Vessels * Normal inferior vena cava diameter and respiratory variation suggests normal central venous pressure. MMode 2D Measurements and Calculations IVSd 1.5 cm IVSs 1.9 cm LVIDd 5.9 cm LVIDs 4.5 cm LVPWd 1.5 cm LVPWs 1.8 cm IVS/LVPW 1.0 FS 23.9 % EDV(Teich) 172.9 ml ESV(Teich) 91.9 ml EF(Teich) 46.8 % EDV(cubed) 204.9 ml ESV(cubed) 90.5 ml EF(cubed) 55.9 % % IVS thick 23.5 % % LVPW thick 22.6 % LV mass(C)d 422.1 grams LV mass(C)dI 189.3 grams/m\S\2 LV mass(C)s 387.5 grams LV mass(C)sI 173.8 grams/m\S\2 SV(Teich) 81.0 ml SI(Teich) 36.3 ml/m\S\2 SV(cubed) 114.4 ml SI(cubed) 51.3 ml/m\S\2 Ao root diam 3.7 cm Ao root area 10.6 cm\S\2 ACS 2.3 cm LA dimension 3.6 cm LA/Ao 0.97 LVOT diam 2.2 cm LVOT area 3.9 cm\S\2 LVAd ap4 47.0 cm\S\2 LVLd ap4 9.9 cm EDV(MOD-sp4) 183.1 ml EDV(sp4-el) 189.0 ml LVAs ap4 32.1 cm\S\2 LVLs ap4 8.5 cm ESV(MOD-sp4) 99.9 ml ESV(sp4-el) 102.4 ml EF(MOD-sp4) 45.4 % EF(sp4-el) 45.8 % LVAd ap2 45.2 cm\S\2 LVLd ap2 9.7 cm EDV(MOD-sp2) 173.6 ml EDV(sp2-el) 178.3 ml LVAs ap2 30.9 cm\S\2 LVLs ap2 8.9 cm ESV(MOD-sp2) 90.7 ml ESV(sp2-el) 91.2 ml EF(MOD-sp2) 47.8 % EF(sp2-el) 48.9 % LVLd %diff -2.16 % EDV(MOD-bp) 180.2 ml LVLs %diff 4.3 % ESV(MOD-bp) 93.7 ml EF(MOD-bp) 48.0 % SV(MOD-sp4) 83.2 ml SI(MOD-sp4) 37.3 ml/m\S\2 SV(MOD-sp2) 82.9 ml SI(MOD-sp2) 37.2 ml/m\S\2 SV(MOD-bp) 86.5 ml SI(MOD-bp) 38.8 ml/m\S\2 SV(sp4-el) 86.5 ml SI(sp4-el) 38.8 ml/m\S\2 SV(sp2-el) 87.1 ml SI(sp2-el) 39.1 ml/m\S\2 Doppler Measurements and Calculations Ao V2 max 149.5 cm/sec Ao max PG 8.9 mmHg Ao max PG (full) 4.5 mmHg KASSIDY(V,A) 2.8 cm\S\2 KASSIDY(V,D) 2.8 cm\S\2 LV V1 max PG 4.4 mmHg LV V1 max 104.8 cm/sec PA V2 max 96.5 cm/sec PA max PG 3.7 mmHg
--- NOTE | 2016-10-21 19:42 | Discharge Summary ---
Discharge Summary Date of Service October 21, 2016. Discharge Summary Admission Date: October 21, 2016 at 11:14 Discharge Date: October 21, 2016 Discharge Disposition: Home (AMA) Principal Diagnosis: Illicit drug abuse with methamphetamine and history of marijuana Problems/Secondary Diagnoses: Mild rhabdomyolysis with elevated total CK Acute kidney failure with elevated creatinine. Tachycardia, likely because of dehydration. Hyper-hemoglobin levels at 19, which could from dehydration, or testosterone injection Alcohol abuse disorder. Anxiety. Consultations: cardio consult was requested Hospital Course pt is a 31-year-old white male with the problems below: 1. Illicit drug abuse with methamphetamine and history of marijuana , history of intravenous drug abuse by cocaine, was using cocaine many years ago. 2. Mild rhabdomyolysis with elevated total CK 3. Acute kidney failure with elevated creatinine. 4. Tachycardia, likely because of dehydration. 5. Hyper-hemoglobin levels at 19, which could from dehydration, or testosterone injection 6. Alcohol abuse disorder. 7. Anxiety. pt was admitted this am, in th e pm , he wants to leave I was busy in ed admission, but I asked RN to talk to him, we told patient that against medical advice may cause permanent organ damage or even , patient is awake, alert and orientated x3, we believe patient is competent to make decision by self. per RN patient fully understands and wants to take all risks by self. We told patient that your medical condition is not ready for your doctor to discharge you to home. we told him need to go back to emergency room or call your primary care physician if changed mind and wants to be treated. Total Time Spent: Less than 30 minutes This includes examination of the patient, discharge planning, medication reconciliation, and communication with other providers. Discharge Instructions Please refer to the electronic Patient Visit Report (Discharge Instructions) for additional information.
[2016-10-21] MEDS ORDERED: HEPARIN SOD 5000 UNIT/0.5 ML CARP SQ SCH (21:00)
[2016-10-22] MEDS ORDERED: DIPH30CA2 PO (01:50)
[2016-10-22] MEDS ORDERED: MULTI-VITAMIN INFUSION INJ 10 ML, THIAMINE HCL INJ 100 MG, FoLIC ACID INJ 1 MG in SODIU... IV SCH (08:00)
[2016-10-22] MEDS ORDERED: PANTOprazole INJ 40 MG in SYRINGE 0 ML IV SCH (11:00)
== END 2016-10-21 19:05 | disposition left against medical advice (07) | DRG 683 ==
LOC: ENRESERVTM → ENRESERVDT → C.EDB 07:28 → C.2E 11:14 → EDBEDREQ 11:23
PROVIDERS: ADMIT Hospitalist; ATTEND Hospitalist
DX: N17.9 Acute kidney failure, unspecified (principal); M62.82 Rhabdomyolysis; E86.0 Dehydration; R00.0 Tachycardia, unspecified; F41.9 Anxiety disorder, unspecified; F17.210 Nicotine dependence, cigarettes, uncomplicated; F10.10 Alcohol abuse, uncomplicated; F15.10 Other stimulant abuse, uncomplicated; Z79.899 Other long term (current) drug therapy

== ENCOUNTER 2016-10-22 00:51 | Emergency (ER) | payer BC, OTHER ==
[~2016-10-22] VITALS: Ht 180.3 cm; Wt 106.0 kg
[2016-10-22 00:53] VITALS: TEMP 37.1; Ht 180.3 cm; Wt 106.0 kg
[2016-10-22] MEDS ORDERED: SODIUM CHLORIDE 0.9% 1000ML 1,000 ML IV STA (00:54)
[2016-10-22 01:22] LABS: BASO % 0.3 %; BASO ABS # 0.04 K/uL (0-0.2); COMPLETE YES; EOS % 0.9 %; HEMATOCRIT 49.6 % (42-52); IG% 0.2 %; LYMPH % 14.7 %; LYMPH ABS # 1.69 K/uL (1.2-3.4); MEAN CELL VOLUME 93.8 fL (80-100); MEAN CORPUSCULAR HEMOGLOBIN 33.8 pg (25-34); MEAN CORPUSCULAR HGB CONC 36.1 g/dl (32-36); MONO % 9.5 %; NEUT % 74.4 %; PLATELET COUNT 208 K/uL (130-400); RED BLOOD COUNT 5.29 M/uL (4.7-6.1); WHITE BLOOD COUNT 11.48 K/uL (4.8-10.8)
[2016-10-22] MEDS ORDERED: LORAZEPAM 1 MG TAB SL STA (01:26)
[2016-10-22 01:39] LABS: POTASSIUM 3.7 mmol/L (3.5-5.1)
[2016-10-22 01:41] LABS: BUN/CREATININE RATIO 20.2 (10-20); CALCIUM 8.6 mg/dl (8.5-10.1); CREATININE 1.3 mg/dl (0.60-1.40); MAGNESIUM 2.1 mg/dl (1.8-2.4)
[2016-10-22] MEDS ORDERED: DIPH30CA2 PO (01:50)
[2016-10-22 01:57] LABS: ACETAMINOPHEN < 2 ug/ml (10-30); CKMB/CK RATIO 0.5 (0-3.0); THYROID STIMULATING HORMONE 4.94 uIu/ml (0.300-4.500)
--- NOTE | 2016-10-22 01:59 | EMERGENCY ROOM VISIT NOTE ---
History Report prepared by Karrie: Tete Ziegler Under the Supervision of: Dr. Kathi Pool M.D. First contact with patient: 00:54 Chief Complaint: OTHER COMPLAINT Stated Complaint: UNABLE TO SLEEP 4 DAYS History of Present Illness The patient is a 31 year old male who presents to the Emergency Room with complaints of worsening symptoms secondary to crystal meth use occurring 2-3 days ago. The patient reports a history of cocaine use. He states that 2-3 days ago he took crystal meth for the first time. He was not familiar with the dosing and states that he snorted a large amount of the substance. He has not slept in 4 days. The patient reports visual and auditory hallucinations. He came to the ED this morning for palpitations. He was admitted to the hospitalist service at that time, but left AMA around 730pm. Brother states that he left the patient home alone this evening while he went to [employer]. When he returned home the patient had fled the house because he was hallucinating. He took 4 doses of ZzzQuil tonight to try and sleep, but this just exacerbated his hallucinations. The patient states, "I feel the presence of a really evil man next to me and he is constantly whispering in my ear." He rates his current pain as an 8/10 in severity. Source of History: patient, family (brother) Onset: 2-3 days ago Position: other (global) Symptom Intensity: 8/10 Timing: worsening Modifying Factors (Worsening): other (using crystal meth) Note: Pt has not slept in 4 days. Pt reports visual and auditory hallucinations. Review of Systems See HPI for pertinent positives & negatives. A total of 10 systems reviewed and were otherwise negative. Past Medical & Surgical Medical Problems: (1) ELEVATED [place], ALCOHOLIC , ILLICIT DRUG ABUSE (2) Hemorrhoid (3) No known health problems (4) No known history of drug allergy Family History No pertinent family history Social History Smoking Status: Current Every Day Smoker Alcohol Use: occasionally Drug Use: cocaine, other (crystal meth) Marital Status: single Housing Status: lives with family Occupation Status: employed Current/Historical Medications Scheduled Ascorbic Acid (Vitamin C), 2,000 MG PO DAILY Cholecalciferol (Vitamin D3), 1 TAB PO DAILY Fish Oil ([place]-3), 1 CAP PO DAILY Flaxseed (Linseed) (Flax Seed Oil), 2,000 MG PO DAILY Potassium (Potassium), 99 MG PO DAILY Vitamin B Cmplx/Vitc/Folic Ac (Nephrocaps), 1 CAP PO DAILY Vitamin E (Vitamin E 400 Iu), 400 INTER.UNIT PO DAILY Scheduled PRN Diphenhydramine Hcl (Sleep) (Zzzquil), 100 MG PO HS PRN for Sleep Allergies Coded Allergies: No Known Allergies (Unverified , 10/21/16) Physical Exam Vital Signs Date Time Temp Pulse Resp B/P Pulse Ox O2 Delivery O2 Flow Rate FiO2 10/22/16 03:02 93 22 146/77 97 10/22/16 02:20 93 22 146/77 97 Room Air 10/22/16 01:25 100 10/22/16 00:53 37.1 111 18 140/55 96 Room Air Physical Exam Vital signs reviewed. General: Flushed, anxious, mildly diaphoretic-appearing 31 year old male, in no significant distress. HEENT: No scleral icterus, PERRLA, neck supple. Atraumatic. Cardiovascular: Tachycardic rate and rhythm, no extra sounds. Pulmonary: Clear to auscultation bilaterally, normal work of breathing. Abdomen: Soft, nontender, nondistended, positive bowel sounds. Musculoskeletal: Atraumatic, no peripheral edema. Neurologic: Patient awake alert and oriented x 3, full strength in all 4 extremities. Cranial nerves 2 through 12 grossly intact. Skin: Warm, mildly diaphoretic, no rash Medical Decision & Procedures Laboratory Results 10/22/16 01:10 Red Blood Count 5.29, Mean Corpuscular Volume 93.8, Mean Corpuscular Hemoglobin 33.8, Mean Corpuscular Hemoglobin Concent 36.1, Mean Platelet Volume 10.0, Neutrophils (%) (Auto) 74.4, Lymphocytes (%) (Auto) 14.7, Monocytes (%) (Auto) 9.5, Eosinophils (%) (Auto) 0.9, Basophils (%) (Auto) 0.3, Neutrophils # (Auto) 8.54, Lymphocytes # (Auto) 1.69, Monocytes # (Auto) 1.09, Eosinophils # (Auto) 0.10, Basophils # (Auto) 0.04 10/22/16 01:10 Test 10/22/16 01:10 10/22/16 01:58 10/22/16 02:05 White Blood Count 11.48 K/uL (4.8-10.8) Red Blood Count 5.29 M/uL (4.7-6.1) Hemoglobin 17.9 g/dL (14.0-18.0) Hematocrit 49.6 % (42-52) Mean Corpuscular Volume 93.8 fL (80-100) Mean Corpuscular Hemoglobin 33.8 pg (25-34) Mean Corpuscular Hemoglobin Concent 36.1 g/dl (32-36) Platelet Count 208 K/uL (130-400) Mean Platelet Volume 10.0 fL (7.4-10.4) Neutrophils (%) (Auto) 74.4 % Lymphocytes (%) (Auto) 14.7 % Monocytes (%) (Auto) 9.5 % Eosinophils (%) (Auto) 0.9 % Basophils (%) (Auto) 0.3 % Neutrophils # (Auto) 8.54 K/uL (1.4-6.5) Lymphocytes # (Auto) 1.69 K/uL (1.2-3.4) Monocytes # (Auto) 1.09 K/uL (0.11-0.59) Eosinophils # (Auto) 0.10 K/uL (0-0.5) Basophils # (Auto) 0.04 K/uL (0-0.2) RDW Standard Deviation 44.2 fL (36.4-46.3) RDW Coefficient of Variation 12.9 % (11.5-14.5) Immature Granulocyte % (Auto) 0.2 % Immature Granulocyte # (Auto) 0.02 K/uL (0.00-0.02) Anion Gap 8.0 mmol/L (3-11) Est Creatinine Clear Calc Drug Dose 103.8 ml/min Estimated GFR () 85.5 Estimated GFR (Non- 73.7 BUN/Creatinine Ratio 20.2 (10-20) Calcium Level 8.6 mg/dl (8.5-10.1) Magnesium Level 2.1 mg/dl (1.8-2.4) Total Bilirubin 0.6 mg/dl (0.2-1) Direct Bilirubin 0.1 mg/dl (0-0.2) Aspartate Amino Transf (AST/SGOT) 141 U/L (15-37) Alanine Aminotransferase (ALT/SGPT) 150 U/L (12-78) Alkaline Phosphatase 50 U/L (45-117) Total Creatine Kinase 2581 U/L (39-308) Creatine Kinase MB 13.8 ng/ml (0.5-3.6) Creatine Kinase MB Ratio 0.5 (0-3.0) Troponin I 0.033 ng/ml (0-0.045) Total Protein 7.0 gm/dl (6.4-8.2) Albumin 3.8 gm/dl (3.4-5.0) Thyroid Stimulating Hormone (TSH) 4.940 uIu/ml (0.300-4.500) Free Thyroxine 1.06 ng/dl (0.80-1.60) Chemistry Specimen Hemolysis Salicylates Level 2.6 mg/dl (2.8-20) Acetaminophen Level < 2 ug/ml (10-30) Ethyl Alcohol mg/dL < 3.0 mg/dl (0-3) Free Triiodothyronine 4.70 pg/ml (2.30-4.20) Urine Color YELLOW Urine Appearance CLEAR (CLEAR) Urine pH 6.5 (4.5-7.5) Urine Specific [place] 1.012 (1.000-1.030) Urine Protein NEG (NEG) Urine Glucose (UA) NEG (NEG) Urine Ketones NEG (NEG) Urine Occult Blood NEG (NEG) Urine Nitrite NEG (NEG) Urine Bilirubin NEG (NEG) Urine Urobilinogen NEG (NEG) Urine Leukocyte Esterase NEG (NEG) Urine Opiates Screen NEG (NEG) Urine Methadone, Qualitative NEG (NEG) Urine Barbiturates NEG (NEG) Urine Phencyclidine (PCP) Level NEG (NEG) Ur Amphetamine/Methamphetamine POS (NEG) MDMA (Ecstasy) Screen NEG (NEG) Urine Benzodiazepines Screen NEG (NEG) Urine Cocaine Metabolite NEG (NEG) Urine Marijuana (THC) NEG (NEG) Laboratory results per my review. Medications Administered Medications (Trade) Dose Ordered Sig/Gonzalo Route Start Time Stop Time Status Last Admin Dose Admin Sodium Chloride (Nss 1000ml) 1,000 ml @ 999 mls/hr Q1H1M STAT IV 10/22/16 00:54 10/22/16 01:54 DC 10/22/16 01:13 999 MLS/HR Lorazepam (Ativan Tab) 2 mg NOW STAT SL 10/22/16 01:26 10/22/16 01:28 DC 10/22/16 01:39 2 MG ECG Indication: toxicologic Rate (beats per minute): 106 Rhythm: sinus tachycardia Findings: no acute ischemic change, no ectopy ED Course 0103: Past medical records reviewed. The patient was evaluated in room A3. A complete history and physical examination was performed. 0054: NSS 1000 ml @ 999 mls/hr IV 0126: Ativan 2 mg SL 0257: I reassessed the patient at this time. He is requesting to leave AMA. I discussed the risks of signing out AMA, but the patient does not wish to remain in the hospital and would like to be discharged. Medical Decision Differential diagnosis: Etiologies such as toxicologic, infection, hypoglycemia, electrolyte abnormalities, cardiac sources, intracerebral event, neurologic, as well as others were entertained. This patient was evaluated and appeared to be in no significant distress. The patient is anxious and complaining of hallucinations. The patient admits to methamphetamine abuse. States he hasn't slept in 4 days. He took 100 mg of Benadryl several hours prior to arrival. Patient's laboratory work reveals an improving transaminitis, rhabdomyolysis and renal insufficiency. The patient signed out AMA from his hospitalization within the last 24 hours. The patient was offered admission to the hospital for further care however he declined and signed out AGAINST MEDICAL ADVICE. The patient was discharged to the care of his brother. He was strongly advised to refrain from any illicit substance abuse or alcohol intake. He was advised to follow-up with her primary care physician for further management. Patient will return to the ER for worsening of symptoms or any medical concerns. Impression Primary Impression: Left against medical advice Additional Impressions: Substance abuse Transaminitis Elevated CK Scribe Attestation The scribe's documentation has been prepared under my direction and personally reviewed by me in its entirety. I confirm that the note above accurately reflects all work, treatment, procedures, and medical decision making performed by me. Departure Information Dispostion Against Medical Advice Referrals No Doctor, Assigned (PCP) Forms HOME CARE DOCUMENTATION FORM, IMPORTANT VISIT INFORMATION, WORK / SCHOOL INSTRUCTIONS Patient Instructions My [facility] Additional Instructions Diagnosis: Substance abuse, liver enzyme elevated, muscle breakdown You have signed out Against Medical Advice Drink plenty of fluids. Avoid alcohol and illicit substances. Follow up with your doctor this week for reevaluation. Return to emergency for worsening of symptoms or any medical concerns. Problem Qualifiers
[2016-10-22 02:35] LABS: URINE APPEARANCE CLEAR (CLEAR); URINE BILIRUBIN NEG (NEG); URINE COLOR YELLOW; URINE NITRITE NEG (NEG); URINE PH 6.5 (4.5-7.5); URINE SPECIFIC GRAVITY 1.012 (1.000-1.030); UROBILINOGEN NEG (NEG); ZZUR CULT IF INDIC CLEAN CATCH NO
[2016-10-22 02:39] LABS: MANUAL MICROSCOPIC REQUIRED? NO; REVIEW REQ? NO
[2016-10-22 02:47] LABS: BENZODIAZEPINE, URINE NEG (NEG); COCAINE,URINE NEG (NEG); PHENCYCLIDINE, URINE NEG (NEG)
[2016-10-22 03:02] VITALS: BP 146/77; PULSE 93; O2SAT 97
== END 2016-10-22 03:02 | disposition left against medical advice (07) ==
LOC: C.EDB 00:51 → C.EDA 03:02
DX: F15.10 Other stimulant abuse, uncomplicated (principal); R74.0 Nonspecific elevation of levels of transaminase and lactic acid dehydrogenase [LDH]; R79.89 Other specified abnormal findings of blood chemistry; F17.210 Nicotine dependence, cigarettes, uncomplicated; Z79.899 Other long term (current) drug therapy

== ENCOUNTER 2016-11-16 17:27 | Emergency (ER) | payer BC ==
[~2016-11-16] VITALS: Ht 182.9 cm; Wt 106.3 kg
[~2016-11-16 17:27] MED LIST changes: +DIPH30CA2 PO
[2016-11-16 17:34] VITALS: TEMP 36.5; Ht 182.9 cm; Wt 106.3 kg
[2016-11-16 17:45] VITALS: O2SAT 97
[2016-11-16] MEDS ORDERED: SODIUM CHLORIDE 0.9% 1000ML 2,000 ML IV STA (17:50)
[2016-11-16] MEDS ORDERED: LORAZEPAM 2 MG/ML 1 ML VIAL IV STA (17:50)
[2016-11-16 18:34] LABS: BASO % 0.2 %; BASO ABS # 0.03 K/uL (0-0.2); COMPLETE YES; EOS % 0.2 %; HEMATOCRIT 49.3 % (42-52); IG% 0.2 %; LYMPH % 17.5 %; LYMPH ABS # 2.21 K/uL (1.2-3.4); MEAN CELL VOLUME 92.3 fL (80-100); MEAN CORPUSCULAR HEMOGLOBIN 33.5 pg (25-34); MEAN CORPUSCULAR HGB CONC 36.3 g/dl (32-36); MEAN PLATELET VOLUME 10.5 fL (7.4-10.4); MONO % 12.2 %; NEUT % 69.7 %; PLATELET COUNT 183 K/uL (130-400); RED BLOOD COUNT 5.34 M/uL (4.7-6.1); WHITE BLOOD COUNT 12.61 K/uL (4.8-10.8)
[2016-11-16 18:51] LABS: BUN/CREATININE RATIO 13.3 (10-20); CALCIUM 9.2 mg/dl (8.5-10.1); CREATININE 1.3 mg/dl (0.60-1.40); POTASSIUM 3.4 mmol/L (3.5-5.1)
[2016-11-16] MEDS ORDERED: SODIUM CHLORIDE 0.9% 1000ML 1,000 ML IV STA (19:28)
--- NOTE | 2016-11-16 20:27 | EMERGENCY ROOM VISIT NOTE ---
History Report prepared by Chrisibjuanjo: Brock Ram Under the Supervision of: Dr. Shahram Kyle M.D. First contact with patient: 17:48 Chief Complaint: OVERDOSE (ACCIDENTAL) Stated Complaint: OVERDOSE History of Present Illness The patient is a 31 year old male who presents to the Emergency Room with complaints of a possible methamphetamine overdose beginning shortly prior to arrival. He states that he used methamphetamine today. He states that he initially took pills, but then crushed them up and snorted them. The patient denies trying to harm himself. He states "my heart feels like it is beating out of my chest". He nose that his lower back hurts as well. Source of History: patient Onset: shortly prior to arrival Quality: other (methamphetamine overdose) Timing: other (episode) Associated Symptoms: + back pain (lower) Note: The patient also complains of a pounding heart. Review of Systems See HPI for pertinent positives & negatives. A total of 10 systems reviewed and were otherwise negative. Past Medical & Surgical Medical Problems: (1) ELEVATED [place], ALCOHOLIC , ILLICIT DRUG ABUSE (2) Hemorrhoid (3) No known health problems (4) No known history of drug allergy Family History No pertinent family history Social History Smoking Status: Current Every Day Smoker Alcohol Use: occasionally Drug Use: cocaine, other Marital Status: single Housing Status: lives with family Occupation Status: employed Current/Historical Medications No Active Prescriptions or Reported Meds Allergies Coded Allergies: No Known Allergies (Unverified , 10/21/16) Physical Exam Vital Signs Date Time Temp Pulse Resp B/P (MAP) Pulse Ox O2 Delivery O2 Flow Rate FiO2 11/16/16 21:14 110 22 124/69 99 11/16/16 18:47 109 22 95 11/16/16 18:42 114 30 99 11/16/16 18:37 112 27 98 11/16/16 18:32 106 26 95 11/16/16 18:27 102 15 94 11/16/16 18:22 104 21 98 11/16/16 18:17 108 16 99 11/16/16 18:12 113 17 11/16/16 18:07 124 25 100 11/16/16 18:02 105 24 99 11/16/16 17:57 105 23 99 11/16/16 17:54 109 11/16/16 17:52 118 20 78 11/16/16 17:45 97 Room Air 11/16/16 17:44 152/98 11/16/16 17:34 36.5 115 18 132/76 97 Room Air Physical Exam GENERAL: Patient appears hyper, walking around the room, agitation consistent with amphetamine overdose. HEENT: No acute trauma, normocephalic atraumatic, mucous membranes moist, no nasal congestion, no scleral icterus. NECK: No stridor, no adenopathy, no meningismus, trachea is midline. LUNGS: No dyspnea. Clear to auscultation and equal bilaterally. No wheeze, no rhonchi. HEART: Tachycardic rate with a regular rhythm. No murmurs, rubs, gallops appreciated. ABDOMEN: Soft, nontender, bowel sounds positive, no masses appreciated, no peritonitis. BACK: No midline tenderness, no CVA tenderness EXTREMITIES: Normal motion all extremities, no cyanosis, no edema. NEUROLOGIC: Alert and oriented, no acute motor or sensory deficits, no focal weakness, cranial nerves grossly intact. SKIN: No rash, no jaundice, no diaphoresis. Flushed in appearance. PSYCH: Denies suicidal or homicidal ideation. Medical Decision & Procedures Laboratory Results 11/16/16 18:20 Red Blood Count 5.34, Mean Corpuscular Volume 92.3, Mean Corpuscular Hemoglobin 33.5, Mean Corpuscular Hemoglobin Concent 36.3, Mean Platelet Volume 10.5, Neutrophils (%) (Auto) 69.7, Lymphocytes (%) (Auto) 17.5, Monocytes (%) (Auto) 12.2, Eosinophils (%) (Auto) 0.2, Basophils (%) (Auto) 0.2, Neutrophils # (Auto ) 8.78, Lymphocytes # (Auto) 2.21, Monocytes # (Auto) 1.54, Eosinophils # (Auto ) 0.02, Basophils # (Auto) 0.03 11/16/16 18:20 Test 11/16/16 18:20 White Blood Count 12.61 K/uL (4.8-10.8) Red Blood Count 5.34 M/uL (4.7-6.1) Hemoglobin 17.9 g/dL (14.0-18.0) Hematocrit 49.3 % (42-52) Mean Corpuscular Volume 92.3 fL (80-100) Mean Corpuscular Hemoglobin 33.5 pg (25-34) Mean Corpuscular Hemoglobin Concent 36.3 g/dl (32-36) Platelet Count 183 K/uL (130-400) Mean Platelet Volume 10.5 fL (7.4-10.4) Neutrophils (%) (Auto) 69.7 % Lymphocytes (%) (Auto) 17.5 % Monocytes (%) (Auto) 12.2 % Eosinophils (%) (Auto) 0.2 % Basophils (%) (Auto) 0.2 % Neutrophils # (Auto) 8.78 K/uL (1.4-6.5) Lymphocytes # (Auto) 2.21 K/uL (1.2-3.4) Monocytes # (Auto) 1.54 K/uL (0.11-0.59) Eosinophils # (Auto) 0.02 K/uL (0-0.5) Basophils # (Auto) 0.03 K/uL (0-0.2) RDW Standard Deviation 43.5 fL (36.4-46.3) RDW Coefficient of Variation 12.8 % (11.5-14.5) Immature Granulocyte % (Auto) 0.2 % Immature Granulocyte # (Auto) 0.03 K/uL (0.00-0.02) Anion Gap 11.0 mmol/L (3-11) Est Creatinine Clear Calc Drug Dose 105.7 ml/min Estimated GFR () 85.5 Estimated GFR (Non- 73.7 BUN/Creatinine Ratio 13.3 (10-20) Calcium Level 9.2 mg/dl (8.5-10.1) Total Creatine Kinase 5278 U/L (39-308) Laboratory results as reviewed by me. Medications Administered Medications (Trade) Dose Ordered Sig/Gonzalo Route Start Time Stop Time Status Last Admin Dose Admin Sodium Chloride 2,000 ml @ 999 mls/hr Q2H1M STAT IV 11/16/16 17:50 11/16/16 19:50 DC 11/16/16 17:50 999 MLS/HR Lorazepam (Ativan Inj) 2 mg NOW STAT IV 11/16/16 17:50 11/16/16 17:52 DC 11/16/16 17:50 2 MG Sodium Chloride 1,000 ml @ 999 mls/hr Q1H1M STAT IV 11/16/16 19:28 11/16/16 20:28 DC 11/16/16 19:28 999 MLS/HR ED Course 1749: The patient was evaluated in room B12B. A complete history and physical exam was performed. Ordered Ativan Inj 2 mg IV, Sodium Chloride 2000 mL @ 999 mL /hr IV. 1914: I reassessed the patient. He feels better and his heart rate has decreased to 100. He admits to using intramuscular testosterone injections. 1927: Ordered Sodium Chloride 1000 mL @ 999 mL/hr IV. 2021: The patient pulled out his IV. He would like to go home. 2029: Reevaluated the patient. He feels much better and would like to go home. He understands the risks of kidney failure. His urine appears clear at this time. Discussed results and discharge instructions: he verbalized understanding and agreement. The patient is ready for discharge. Medical Decision Differential: Suicide Attempt, Mood Disorder, Poisoning, Medication OD, Narcotic OD, Tylenol OD, Salicylated OD, Prolonged QTc, Metabolic/Electrolyte imbalance, Trauma, Rhabdo, Infectious, amongst other pathologies entertained. 31 yr old male arrives following methamphetamine use. Symptoms consistent with this. Ativan IV with much calmer. 3 L NSS given. Patient now requesting to go home. Discussed coming in to hospital and he makes clear he will not stay. Made clear to him that he could have some kidney issues. He states he will rest , drink fluids and avoid further meth use and avoid exertion. Will return if worsening, blood urine, etc. He does not have acute renal failure at this time. He is able to repeat back to me what I discussed with him. He is asking for pain meds for his low back and I made clear I would not do this is in a patient who just had treatment for acute methamphetamine overdose. To keep him here would need to be against his will and would require physical/chemical restraints and I do not feel he is altered nor unable to make decision to leave. Impression Primary Impression: Rhabdomyolysis Additional Impression: Methamphetamine abuse Scribe Attestation The scribe's documentation has been prepared under my direction and personally reviewed by me in its entirety. I confirm that the note above accurately reflects all work, treatment, procedures, and medical decision making performed by me. Departure Information Dispostion Home / Self-Care Prescriptions No Active Prescriptions or Reported Meds Referrals No Doctor, Assigned (PCP) Patient Instructions My [facility] Additional Instructions You have evidence of muscle breakdown. This is likely from extreme exertion and doing drugs. You must keep well hydrated, avoid exertion and do not do any more drugs. Keep well hydrated. If you develop muscle aches/spasms, dark urine, passing out , severe headaches or other concerns return for further evaluation. You should consider drug rehab given your use problem. We are always here to help. If you feel you are at risk of hurting yourself or others call 911. Problem Qualifiers Primary Impression: Rhabdomyolysis Rhabdomyolysis type: non-traumatic Qualified Codes: M62.82 - Rhabdomyolysis
[2016-11-16 21:14] VITALS: BP 124/69; PULSE 110; O2SAT 99
== END 2016-11-16 21:15 | disposition home or self-care (01) ==
LOC: C.EDB 17:28
DX: M62.82 Rhabdomyolysis (principal); F15.10 Other stimulant abuse, uncomplicated; F17.210 Nicotine dependence, cigarettes, uncomplicated

== ENCOUNTER 2016-11-17 19:52 | Emergency (ER) | payer BC ==
[~2016-11-17] VITALS: Ht 182.9 cm; Wt 106.6 kg
[2016-11-17 19:55] VITALS: BP 147/66; PULSE 116; TEMP 36.4; O2SAT 99; Ht 182.9 cm; Wt 106.6 kg
[2016-11-17] MEDS ORDERED: SODIUM CHLORIDE 0.9% 1000ML 1,000 ML IV STA (20:47)
[2016-11-17] MEDS ORDERED: hydrOXYzine HCL IM SOLN 50 MG/ML 1 ML VIAL IM STA (20:47)
[2016-11-17] MEDS ORDERED: LORAZEPAM 2 MG/ML 1 ML VIAL IV STA (20:50)
[2016-11-17 21:05] LABS: BASO % 0.6 %; BASO ABS # 0.06 K/uL (0-0.2); COMPLETE YES; EOS % 0.8 %; HEMATOCRIT 50.2 % (42-52); IG% 0.2 %; LYMPH % 20.4 %; LYMPH ABS # 1.98 K/uL (1.2-3.4); MEAN CELL VOLUME 93.5 fL (80-100); MEAN CORPUSCULAR HEMOGLOBIN 34.3 pg (25-34); MEAN CORPUSCULAR HGB CONC 36.7 g/dl (32-36); MEAN PLATELET VOLUME 10.1 fL (7.4-10.4); PLATELET COUNT 227 K/uL (130-400); RED BLOOD COUNT 5.37 M/uL (4.7-6.1); WHITE BLOOD COUNT 9.69 K/uL (4.8-10.8)
[2016-11-17 21:19] LABS: CREATININE 1.4 mg/dl (0.60-1.40); POTASSIUM 3.7 mmol/L (3.5-5.1)
[2016-11-17 21:59] LABS: CALCIUM 8.5 mg/dl (8.5-10.1)
--- NOTE | 2016-11-18 00:13 | EMERGENCY ROOM VISIT NOTE ---
History Report prepared by Karrie: Tete Ziegler Under the Supervision of: Dr. Adin Carrillo M.D. 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 The patient was evaluated in the ED yesterday after he overdosed on methamphetamines. He admits to taking pills and snorting methamphetamines yesterday. He received IV fluids and felt better, so he left the hospital AMA. Today the patient is feeling extremely anxious and short of breath. He states, "I feel so bad right now. I feel like I need IV fluids again." He admits to smoking cigarettes and marijuana today, but denies using any other drugs. He does state that he had about 5 beers earlier today. He denies suicidal or homicidal ideation. The patient states that he has not eaten in a couple of days. He notes some pain in his lower back which he states is chronic for him. The HPI is limited due to the patient being a poor historian as he is very anxious. 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 Review of Systems I did review 10 or more systems which are negative unless otherwise indicated on the chart or HPI. Past Medical & Surgical Medical Problems: (1) ELEVATED [place], ALCOHOLIC , ILLICIT DRUG ABUSE (2) Hemorrhoid (3) No known health problems (4) No known history of drug allergy Family History No pertinent family history Social History Smoking Status: Current Every Day Smoker Alcohol Use: occasionally Drug Use: cocaine, marijuana, other Marital Status: single Housing Status: lives with family Occupation Status: employed Current/Historical Medications No Active Prescriptions or Reported Meds Allergies Coded Allergies: No Known Allergies (Unverified , 10/21/16) Physical Exam Vital Signs Date Time Temp Pulse Resp B/P (MAP) Pulse Ox O2 Delivery O2 Flow Rate FiO2 11/17/16 19:55 36.4 116 24 147/66 99 Room Air Physical Exam Constitutional: Vital signs reviewed. Eyes: Pupils are equal round reactive to light. Conjunctiva are noninjected. ENT: Pharynx is clear without erythema or exudate. Mucous membranes are moist. Neck supple without meningeal signs. Respiratory: Clear to auscultation bilaterally. Breath sounds are equal bilaterally. Cardiovascular: Tachycardic rate and regular rhythm. No rubs or gallops. GI: Soft, nondistended and nontender. Bowel sounds are present. Musculoskeletal: No peripheral edema. No lower extremity tenderness. Integumentary: No cyanosis. Neurological: The patient is awake and alert. No focal deficits. Psychiatric: Extremely anxious. Medical Decision & Procedures Laboratory Results 11/17/16 20:50 Red Blood Count 5.37, Mean Corpuscular Volume 93.5, Mean Corpuscular Hemoglobin 34.3, Mean Corpuscular Hemoglobin Concent 36.7, Mean Platelet Volume 10.1, Neutrophils (%) (Auto) 66.0, Lymphocytes (%) (Auto) 20.4, Monocytes (%) (Auto) 12.0, Eosinophils (%) (Auto) 0.8, Basophils (%) (Auto) 0.6, Neutrophils # (Auto ) 6.39, Lymphocytes # (Auto) 1.98, Monocytes # (Auto) 1.16, Eosinophils # (Auto ) 0.08, Basophils # (Auto) 0.06 11/17/16 20:50 Test 11/17/16 20:50 White Blood Count 9.69 K/uL (4.8-10.8) Red Blood Count 5.37 M/uL (4.7-6.1) Hemoglobin 18.4 g/dL (14.0-18.0) Hematocrit 50.2 % (42-52) Mean Corpuscular Volume 93.5 fL (80-100) Mean Corpuscular Hemoglobin 34.3 pg (25-34) Mean Corpuscular Hemoglobin Concent 36.7 g/dl (32-36) Platelet Count 227 K/uL (130-400) Mean Platelet Volume 10.1 fL (7.4-10.4) Neutrophils (%) (Auto) 66.0 % Lymphocytes (%) (Auto) 20.4 % Monocytes (%) (Auto) 12.0 % Eosinophils (%) (Auto) 0.8 % Basophils (%) (Auto) 0.6 % Neutrophils # (Auto) 6.39 K/uL (1.4-6.5) Lymphocytes # (Auto) 1.98 K/uL (1.2-3.4) Monocytes # (Auto) 1.16 K/uL (0.11-0.59) Eosinophils # (Auto) 0.08 K/uL (0-0.5) Basophils # (Auto) 0.06 K/uL (0-0.2) RDW Standard Deviation 43.6 fL (36.4-46.3) RDW Coefficient of Variation 12.7 % (11.5-14.5) Immature Granulocyte % (Auto) 0.2 % Immature Granulocyte # (Auto) 0.02 K/uL (0.00-0.02) Anion Gap 9.0 mmol/L (3-11) Est Creatinine Clear Calc Drug Dose 98.2 ml/min Estimated GFR () 78.1 Estimated GFR (Non- 67.4 BUN/Creatinine Ratio 9.0 (10-20) Calcium Level 8.5 mg/dl (8.5-10.1) Total Creatine Kinase 1941 U/L (39-308) Laboratory results as reviewed by me. Medications Administered Medications (Trade) Dose Ordered Sig/Gonzalo Route Start Time Stop Time Status Last Admin Dose Admin Sodium Chloride 1,000 ml @ 999 mls/hr Q1H1M STAT IV 11/17/16 20:47 11/17/16 21:47 DC 11/17/16 20:50 999 MLS/HR Lorazepam (Ativan Inj) 1 mg NOW STAT IV 11/17/16 20:50 11/17/16 20:51 DC 11/17/16 20:59 1 MG ED Course 2021: The patient was evaluated in room A9B. A complete history and physical exam was performed. 2046: NSS 1000 ml @ 999 mls/hr IV 2049: Lorazepam 1 mg IV 2215: I reassessed the patient at this time. He is feeling better and resting comfortably. He is ready to go home and said that he also drank 5 beers earlier today. He does not want any rehab. He states that he does not have a drug problem, he just needed IV fluids. I discussed the results and treatment plan with the patient. I answered all pertaining questions that he had. He expressed understanding and verbalized agreement. The patient will be discharged home. Medical Decision This is a 31-year-old male who presents with anxiety. Differential diagnosis includes panic attack, generalized anxiety disorder, electrolyte abnormality, metabolic derangement, drug abuse. I did perform a limited focused review of portions of the patient's old chart on the electronic medical record. The patient was here yesterday and had a CK of over 5000. He was given 3 L of normal saline and left AMA. Medication Reconciliation: I attest that I have personally reviewed the patient' s current medication list. Blood Pressure Screening: Patient was found to have an elevated blood pressure and was referred to their primary doctor for recheck and further treatment. I did evaluate the patient as noted above. The patient is extremely anxious. He is fixated on getting an IV and fluids as she stated this made him feel much better yesterday. IV access was established. The patient was placed on a continuous cardiac/vascular sonographer. He was given a liter normal saline IV. He was also given 1 mg of Ativan IV. I did order and review the patient's blood work as noted in the electronic medical record. His CK is significantly improved since he was here yesterday. I did reassess the patient. He is feeling much better. He is less anxious and states he feels well. I did offer to have case management talk to him about drug rehabilitation but he insisted that this was not a drug issue despite smoking marijuana, using methamphetamine and drinking multiple beers today. He denies any homicidal or suicidal ideation. He states that since he got the IV fluids he feels much better and wants to go home. He was discharged with his brother. Impression Primary Impression: Anxiety Additional Impressions: Dehydration Illicit drug use Scribe Attestation The scribe's documentation has been prepared under my direct and personally reviewed by me in its entirety. I confirm that the note above accurately reflects all work, treatment, procedures, and medical decision making performed by me. Departure Information Dispostion Home / Self-Care Prescriptions No Active Prescriptions or Reported Meds Referrals No Doctor, Assigned (PCP) Forms HOME CARE DOCUMENTATION FORM, IMPORTANT VISIT INFORMATION, WORK / SCHOOL INSTRUCTIONS Patient Instructions Anxiety Body Response, My [facility] Additional Instructions You have been examined and treated today on an emergency basis only. This is not a substitute for, or an effort to provide, complete comprehensive medical care. It is impossible to recognize and treat all injuries or illnesses in a single emergency department visit. It is therefore important that you follow up closely with your physician. Call as soon as possible for an appointment. Return for worsening symptoms or if you develop fever, vomiting, or any other concerning symptoms. Do not use drugs or drink alcohol. Drink plenty of fluids. Problem Qualifiers
== END 2016-11-17 22:53 | disposition home or self-care (01) ==
LOC: C.EDB 19:52 → C.EDA 22:53
DX: F41.9 Anxiety disorder, unspecified (principal); E86.0 Dehydration; F12.90 Cannabis use, unspecified, uncomplicated; R06.02 Shortness of breath; G89.29 Other chronic pain; M54.5 Low back pain; Z87.19 Personal history of other diseases of the digestive system; F17.200 Nicotine dependence, unspecified, uncomplicated